=== PATIENT | male | born 1990 | race Caucasian/White ===

== ENCOUNTER 2017-07-01 20:46 | Emergency (ER) | payer OTHER ==
[~2017-07-01] VITALS: Ht 162.6 cm; Wt 77.1 kg
[2017-07-01] MEDS ORDERED: PREVACID15 MG (21:15)
[2017-07-02] MEDS ORDERED: INTESTINEX680 M1 PO (03:01)
[2017-07-02] MEDS ORDERED: PHENERGAN25 MG PO (03:01)
[2017-07-02] MEDS ORDERED: ZANTAC300 MG PO (03:01)
[2017-07-02] MEDS ORDERED: DICY20TA PO (03:01)
== END 2017-07-02 03:17 | disposition home or self-care (01) ==
LOC: ER 20:46
DX: K52.9 Noninfective gastroenteritis and colitis, unspecified (principal)

== ENCOUNTER 2017-10-03 14:02 | Outpatient (CLI) | payer OTHER ==
[~2017-10-03 14:02] MED LIST: DICY20TA PO; INTESTINEX680 M1 PO; PHENERGAN25 MG PO; PREVACID15 MG; ZANTAC300 MG PO
== END 2017-10-03 14:06 | disposition home or self-care (01) ==
LOC: MRI 14:02
DX: M54.16 Radiculopathy, lumbar region (principal)
CPT/HCPCS: 72148

== ENCOUNTER 2018-03-18 14:38 | Outpatient (CLI) | payer OTHER ==
[~2018-03-18] VITALS: Ht 162.6 cm; Wt 77.1 kg
== END 2018-03-18 17:00 | disposition home or self-care (01) ==
LOC: OFIC 805 14:38
DX: J32.8 Other chronic sinusitis (principal); R09.81 Nasal congestion; H92.01 Otalgia, right ear; G47.33 Obstructive sleep apnea (adult) (pediatric)

== ENCOUNTER 2019-12-20 00:15 | Emergency (ER) | payer OTHER ==
[~2019-12-20] VITALS: Ht 162.6 cm; Wt 83.5 kg
[2019-12-20] MEDS ORDERED: CLONAZEPAM2 MG (00:41)
[2019-12-20] MEDS ORDERED: COZAAR25 MG PO (02:00)
== END 2019-12-20 02:12 | disposition home or self-care (01) ==
LOC: ER 00:15
DX: I10 Essential (primary) hypertension (principal)

== ENCOUNTER 2020-03-06 23:18 | Emergency (ER) | payer OTHER ==
[~2020-03-06] VITALS: Ht 162.6 cm; Wt 83.9 kg
[~2020-03-06 23:18] MED LIST changes: +CLONAZEPAM2 MG; +COZAAR25 MG PO
[2020-03-07] MEDS ORDERED: LEVSIN/SL0.125 MG SL (05:22)
[2020-03-07] MEDS ORDERED: PROTONIX40 MG PO (05:22)
[2020-03-07] MEDS ORDERED: PEPCID40 MG PO (05:22)
== END 2020-03-07 05:34 | disposition home or self-care (01) ==
LOC: ER 23:18
DX: R10.13 Epigastric pain (principal)

== ENCOUNTER → 2020-07-15 | Emergency (ER) | payer OTHER ==
[~2020-07-15] VITALS: Ht 266.7 cm; Wt 83.9 kg
[~2020-07-15] MED LIST changes: +LEVSIN/SL0.125 MG SL; +PEPCID40 MG PO; +PROTONIX40 MG PO
== END | disposition left against medical advice (07) ==
LOC: ER 14:55
DX: R00.2 Palpitations (principal); F06.4 Anxiety disorder due to known physiological condition

== ENCOUNTER 2020-09-28 21:37 | Day surgery (SDC) | payer OTHER ==
[~2020-09-28] VITALS: Ht 157.5 cm; Wt 84.4 kg
[2020-09-29] MEDS ORDERED: PERCOCET 5-3251 EACH PO (15:07)
[2020-09-29] MEDS ORDERED: CEPHALEXIN500 MG PO (15:08)
[2020-09-29] MEDS ORDERED: TAMS0.4C PO (15:09)
== END 2020-09-29 17:36 | disposition home or self-care (01) ==
LOC: ER 21:37 → CIR.AMB 21:37 → O/R 21:37 → SEC-K 21:37 → EDSTATUS 09-29 13:00 → SEC-K 09-29 14:29 → O/R 09-29 14:29 → CIR.AMB 09-29 17:36
PROVIDERS: ATTEND Surgery
DX: N20.1 Calculus of ureter (principal); Z20.822 Contact with and (suspected) exposure to COVID-19

== ENCOUNTER 2020-10-11 12:52 | Outpatient (CLI) | payer OTHER ==
[~2020-10-11 12:52] MED LIST changes: +CEPHALEXIN500 MG PO; +PERCOCET 5-3251 EACH PO; +TAMS0.4C PO
== END 2020-10-11 13:04 | disposition home or self-care (01) ==
LOC: RAD 12:52
PROVIDERS: ATTEND Surgery
DX: N20.1 Calculus of ureter (principal)

== ENCOUNTER 2020-10-18 14:40 | Outpatient (CLI) | payer OTHER | END 2020-10-18 14:51 | disposition home or self-care (01) | LOC: RAD 14:40 | DX: N20.1 Calculus of ureter (principal) ==

== ENCOUNTER 2021-03-03 00:11 | Emergency (ER) | payer OTHER ==
[~2021-03-03] VITALS: Ht 162.6 cm; Wt 83.9 kg
[2021-03-03] MEDS ORDERED: KETO10TA2 PO (05:33)
== END 2021-03-03 05:49 ==
LOC: ER 00:11
DX: R10.31 Right lower quadrant pain (principal)

== ENCOUNTER → 2021-07-11 | Emergency (ER) | payer OTHER ==
[~2021-07-11] VITALS: Ht 154.9 cm; Wt 79.4 kg
[~2021-07-11] MED LIST changes: +KETO10TA2 PO
== END | disposition left against medical advice (07) ==
LOC: ER 01:13
DX: J02.9 Acute pharyngitis, unspecified (principal)